=== PATIENT | female | born 1945 | race Caucasian/White ===

== ENCOUNTER 2020-09-14 04:56 | Observation (INO) ==
--- NOTE | 2020-09-08 11:18 | Anesthesiology Consultation ---
Date of Service September 08, 2020 Assessment & Plan (1) Encounter for pre-operative examination: Case originally scheduled for 06/28/20. R/S due to pandemic-related OR shutdown. Patient reports brother and sister both have confirmed h/o malignant hyperthermia. Patient has not had any issues with GA in the past, but unclear if pt has always been treated as a potential MH case and just never received succ. as a precaution. Planning for SAB. Possible difficult intubation based on PE (see other pre-anesthesia evaluation under different V# for physical exam) PCP Clearance 06/14/20 = "Based solely on physical exam today, patient is an acceptable risk for planned procedure." Cardio Clearance 06/09/2020 = "Patient has low risk for right hip replacement." COVID Status: As of 08/19/20 nurse assessment, patient denies travel to endemic area, known exposure/sick contacts, or symptoms of COVID19. Preoperative COVID19 testing completed on 09/07, results pending. Chart Review Chart Review: Acceptable Risk for Surgery and Patient seen in Pre Admission Testing (06/10/20, case then R/S) History Surgery Operation Date: 09/14/20 10:55 Proposed Procedures p Right Total Hip Arthroplasty Posterior - Silas Aguilar DO Height/Weight Height: 5 ft 2.5 in Weight: 102.512 kg Allergies Allergy/AdvReac Type Severity Reaction Status Date / Time adhesive tape Allergy Intermediate Rash Verified 08/19/20 15:02 bacitracin Allergy Intermediate Rash Verified 08/19/20 15:02 [From Neosporin Plus] latex Allergy Intermediate Rash Verified 08/19/20 15:02 lidocaine Allergy Intermediate Rash Verified 08/19/20 15:02 [From Neosporin Plus] neomycin Allergy Intermediate Rash Verified 08/19/20 15:02 [From Neosporin Plus] polymyxin B Allergy Intermediate Rash Verified 08/19/20 15:02 [From Neosporin Plus] pramoxine Allergy Intermediate Rash Verified 08/19/20 15:02 [From Neosporin Plus] aspirin AdvReac Mild Gastrointestinal Verified 08/19/20 15:02 Upset Medications Home Medications Medication Instructions Recorded Confirmed Last Taken atorvastatin 40 mg PO PM 05/31/20 08/19/20 Unknown budesonide-formoterol [Symbicort] 2 puff INHALATION BID 05/31/20 08/19/20 Unknown calcium carbonate-vitamin D3 1 tab PO BID 05/31/20 08/19/20 Unknown [Calcium 500 With D] gabapentin 300 mg PO TID 05/31/20 08/19/20 Unknown lorazepam 0.25 mg PO BID PRN 05/31/20 08/19/20 Unknown methylcellulose (with sugar) 1 tbsp PO PM 05/31/20 08/19/20 Unknown [Citrucel (sucrose)] metoprolol tartrate 50 mg PO PM 05/31/20 08/19/20 Unknown montelukast 10 mg PO PM 05/31/20 08/19/20 Unknown pantoprazole 40 mg PO HS 05/31/20 08/19/20 Unknown potassium chloride 20 meq PO QDL 05/31/20 08/19/20 Unknown spironolactone 50 mg PO QAM 05/31/20 08/19/20 Unknown sulindac 150 mg PO BID 05/31/20 08/19/20 Unknown albuterol 90 mcg INHALATION DAILY PRN 08/19/20 08/19/20 Unknown Past Medical History Medical History Anxiety HX Breast cancer 2014 > S/P BILAT MASTECTOMY Chronic obstructive pulmonary disease WELL CONTROLLED PER PT Diverticular disease Fibromyalgia GERD (gastroesophageal reflux disease) Hyperlipidemia Hypertension Morbid obesity Osteoarthritis Tachycardia WELL CONTROLLED ON METOPROLOL Urinary incontinence SOMETIMES AT HS Past Surgical History Surgical History H/O bilateral mastectomy 2014 History of appendectomy History of bilateral tubal ligation History of cholecystectomy History of colonoscopy History of esophagogastroduodenoscopy (EGD) History of hysterectomy History of right oophorectomy History of tonsillectomy History of tooth extraction Social History Smoking Status: Former smoker Do You Dip or Chew Tobacco: No Smoking End Date: 20 yrs ago Hx Alcohol Use: Yes Alcohol type: beer and wine alcohol intake frequency: a few times a month Hx Substance Use: No substance use type: does not use Testing Laboratory Results 09/07/20 WBC: 9.14 H/H: 13/38.7 PLATELETS: 304 SODIUM: 139 POTASSIUM: 4.0 CHLORIDE: 107 CO2: 28 BUN: 22 CREATININE: 1.04 GLUCOSE: 99 PT: 9.7 PTT: 24.0 INR: 1.0 A1C: 5.7% UA: WNL Chest X-Ray Date: 06/10/20 Findings: + NAD Other Testing Electrocardiogram Date: 12/10/19 Findings: + NSR @ (70bpm) Echocardiogram Date: 01/08/20 EF: 55-59% No change compared to previous echo from 07/08/2018. Left ventricle normal size. Grade 1 diastolic dysfunction of left ventricle. Normal LV wall motion. Mild concentric LVH. Left atrial pressure is normal. Right ventricle has normal size, wall thickness and systolic function. Mild (1+) mitral regurgitation. Pulmonary pressure is normal.
--- NOTE | 2020-09-11 22:25 | History & Physical Report ---
Date of Service September 14, 2020 Assessment & Plan (1) Degenerative joint disease of right hip: I have indicated the patient for right total hip replacement. The risks, benefits and complications of surgery were explained to the patient which include but not limited to infection, acute blood loss, DVT/PE, injury to nerves, vessels, bone, soft tissue, arthrofibrosis, chronic pain, failure of the prosthesis, hip dislocation, leg length discrepancy, need for additional surgery, cardiac and pulmonary events and . The patient wished to proceed with surgery and informed consent was obtained at this time. We will plan for 81mg ASA BID post-operatively for DVT prophylaxis. Upon discharge the patient will be discharged home with home health services. Appropriate clearances by PCP, cardiology were obtained. History of Present Illness Chief Complaint: Right hip pain/DJD/AVN Primary Care Provider: Aleks Munguia MD The patient is a 74 year old female who presents with complaints of severe right hip pain and DJD/AVN. The patient has failed outpatient conservative treatments to this point which included NSAIDs, activity modification, PT and a home exercise/walking program. The patient's pain and limited function have progressed to the point where they severely hinder their activities of daily living and they no longer tolerate exercise programs. They are requesting to proceed with total hip replacement surgery. Allergies Allergy/AdvReac Type Severity Reaction Status Date / Time adhesive tape Allergy Intermediate Rash Verified 09/14/20 05:34 bacitracin Allergy Intermediate Rash Verified 09/14/20 05:34 [From Neosporin Plus] latex Allergy Intermediate Rash Verified 09/14/20 05:34 lidocaine Allergy Intermediate Rash Verified 09/14/20 05:34 [From Neosporin Plus] neomycin Allergy Intermediate Rash Verified 09/14/20 05:34 [From Neosporin Plus] polymyxin B Allergy Intermediate Rash Verified 09/14/20 05:34 [From Neosporin Plus] pramoxine Allergy Intermediate Rash Verified 09/14/20 05:34 [From Neosporin Plus] aspirin AdvReac Mild Gastrointestinal Verified 09/14/20 05:34 Upset Home Medications Medication Instructions Recorded Confirmed Type atorvastatin 40 mg PO PM 05/31/20 09/14/20 History budesonide-formoterol [Symbicort] 2 puff INHALATION BID 05/31/20 09/14/20 History calcium carbonate-vitamin D3 1 tab PO BID 05/31/20 09/14/20 History [Calcium 500 With D] gabapentin 300 mg PO TID 05/31/20 09/14/20 History lorazepam 0.25 mg PO BID PRN 05/31/20 09/14/20 History methylcellulose (with sugar) 1 tbsp PO PM 05/31/20 09/14/20 History [Citrucel (sucrose)] metoprolol tartrate 50 mg PO PM 05/31/20 09/14/20 History montelukast 10 mg PO PM 05/31/20 09/14/20 History pantoprazole 40 mg PO HS 05/31/20 09/14/20 History potassium chloride 20 meq PO QDL 05/31/20 09/14/20 History spironolactone 50 mg PO QAM 05/31/20 09/14/20 History sulindac 150 mg PO BID 05/31/20 09/14/20 History albuterol 90 mcg INHALATION DAILY PRN 08/19/20 09/14/20 History Past Med/Surg History Medical History Anxiety HX Breast cancer 2014 > S/P BILAT MASTECTOMY Chronic obstructive pulmonary disease WELL CONTROLLED PER PT Diverticular disease Family history of malignant hyperthermia Patient reports brother and sister both have confirmed h/o malignant hyperthermia. Patient has not had any issues with GA in the past, but unclear if pt has always been treated as a potential MH case and just never received succ. as a precaution. Fibromyalgia GERD (gastroesophageal reflux disease) Hyperlipidemia Hypertension Morbid obesity Osteoarthritis Tachycardia WELL CONTROLLED ON METOPROLOL Urinary incontinence SOMETIMES AT HS Surgical History H/O bilateral mastectomy 2014 History of appendectomy History of bilateral tubal ligation History of cholecystectomy History of colonoscopy History of esophagogastroduodenoscopy (EGD) History of hysterectomy History of right oophorectomy History of tonsillectomy History of tooth extraction Social History Smoking Status: Former smoker Smoking End Date: 20 yrs ago; Second Hand Exposure: No; Do You Dip or Chew Tobacco: No; Tobacco Cessation Education Requested by Patient: No Hx Alcohol Use: Yes Alcohol type: beer and wine Hx Substance Use: No Preferred Language: Slovenian Communication Ability: Effective Land Developer Required: No Beliefs That Will Affect Care: None Current Living Situation: Significant Other Other Information That Helps Us Care for You: No Feels Safe at Home: Yes Safety Concerns: Feels Safe At This Time Assistive Devices: Cane, Glasses and Walker Review of Systems Review of Systems: All systems reviewed & are unremarkable except as noted in HPI & below Constitutional: as per Subjective / HPI Physical Exam Physical Exam: RLE NVSI +EHL/FHL/TA/GS SILT grossly, +2 DP pulse, compartments soft NT, limited painful ROM, antalgic gait. Constitutional: WD/WN, vitals as above Eyes: PERRL, conjunctivae normal, anicteric sclerae ENMT: external ear and nose normal, oropharynx normal Neck: trachea midline, no thyromegaly Respiratory: normal respiratory effort, lungs clear to auscultation Cardiovascular: RRR, no murmur, no edema Gastrointestinal (Abdomen): normal bowel sounds, soft, nontender, no hepatosplenomegaly Musculoskeletal: no cyanosis or clubbing, extremities motor strength 5/5 Skin: no rashes, warm and dry Neurologic: patellar DTR's 2+ bilat, sensation intact Psychiatric: A+Ox3, euthymic affect Lymphatic: no cervical or axillary lymphadenopathy Results & Data Results & Data ([facility]) Diagnostic Findings Multiple views of the hip demonstrates severe DJD with complete loss of the joint space, AVN of the femoral head. +osteophytes, +sclerosis, +subchondral cysts.
[2020-09-14] MEDS ORDERED: METOCLOPRAMIDE HCL 10 MG TABLET PO SCH (06:00)
[2020-09-14] MEDS ORDERED: TRANEXAMIC ACID 1,000 MG **IV Intra-op IV SCH (06:00)
[2020-09-14] MEDS ORDERED: ACETAMINOPHEN 500 MG TAB PO SCH (06:00)
[2020-09-14] MEDS ORDERED: CeleBREX 200 MG CAP PO SCH (06:00)
[2020-09-14] MEDS ORDERED: LR 500ML BOLUS, THEN 15ML/HR IV SCH (06:00)
[2020-09-14] MEDS ORDERED: ROPIVACAINE 0.5% HCL/PF 150 MG, BUPIVACAINE 0.75% MPF 20 ML, EPINEPHrine 30MG/30ML (OR ... INSTIL SCH (06:00)
[2020-09-14] MEDS ORDERED: dexAMETHasone 4 MG TAB PO SCH (06:00)
[2020-09-14] MEDS ORDERED: TRANEXAMIC ACID 1,000 MG **IV Pre-op IV SCH (06:00)
[2020-09-14] MEDS ORDERED: FAMOTIDINE 20 MG TAB PO SCH (06:00)
[2020-09-14] MEDS ORDERED: BUPIVACAINE 0.5 % 5 MG/1 ML PF 10ML VIAL ONE (06:19)
[2020-09-14] MEDS ORDERED: fentaNYL citrate 100 MCG/2 ML VIAL ONE (06:51)
[2020-09-14] MEDS ORDERED: MIDAZOLAM HCL 1 MG/ML 2ML VIAL ONE (06:51)
[2020-09-14] MEDS ORDERED: ceFAZolin 3000MG/72.5 ML BAG IV ONE (07:00)
--- NOTE | 2020-09-14 07:00 | History & Physical Bridge Note ---
Date of Service September 14, 2020 History & Physical Bridge Note I have examined the patient, reviewed the History & Physical and in the interval since the performance of the History & Physical I have noted the following changes of clinical significance: no changes noted
[2020-09-14] MEDS ORDERED: ORTHO JOINT ANESTHETIC ONE (07:03)
[2020-09-14] MEDS ORDERED: ePHEDrine sulfate 50 MG/ML AMP IV PRN (07:27)
[2020-09-14] MEDS ORDERED: ONDANSETRON INJ 2 MG/ML 2 ML VIAL IV PRN ×2 (07:27→10:29)
[2020-09-14] MEDS ORDERED: fentaNYL citrate 100 MCG/2 ML VIAL IV PRN (07:27)
[2020-09-14] MEDS ORDERED: ATROPINE SULFATE 0.1 MG/ML 10ML SYR IV PRN (07:27)
[2020-09-14] MEDS ORDERED: ePHEDrine sulfate 50 MG/ML SYR ONE (07:35)
[2020-09-14] MEDS ORDERED: PROPOFOL IV EMULSION 10 MG/ML 20 ML VIAL IV ONE (07:35)
--- NOTE | 2020-09-14 08:48 | Post Operative Brief Note ---
Immediate Post Op Note v1 Date of Surgery September 14, 2020 Pre & Post Diagnosis Operation Date: 09/14/20 07:15 Pre-Op Diagnosis: Degenerative joint disease of right hip Post-Op Diagnosis: Degenerative joint disease of right hip I identified the patient and participated in the time-out.: Yes Procedure Operation Date: 09/14/20 07:15 Actual Procedures p Right Posterior Total Hip Arthroplasty(Right) - Silas Aguilar DO Surgeon Silas Aguilar DO District Gauger Kayden Davies Estimated Blood Loss 195 Findings Consistent with Post-Op Diagnosis Specimens femoral head Drains Hemovac Drain Anesthesia Type Spinal MAC Complications none Disposition Disposition: Recovery Room Overlapping Procedure I was present for: the critical portions of procedure. I was immediately available: during the entire case. Back up surgeon: was not required during procedure.
--- NOTE | 2020-09-14 08:50 | Operative Report ---
Post Operative Report Pre & Post Diagnosis Operation Date: 09/14/20 07:15 Pre-Op Diagnosis: Degenerative joint disease of right hip Post-Op Diagnosis: Degenerative joint disease of right hip I identified the patient and participated in the time-out.: Yes Procedure Operation Date: 09/14/20 07:15 Actual Procedures p Right Posterior Total Hip Arthroplasty(Right) - Silas Aguilar DO Surgeon Silas Aguilar DO Cmm Inspector Kayden Davies Estimated Blood Loss 195 Findings Consistent with Post-Op Diagnosis Specimens femoral head Anesthesia Type Spinal MAC Complications none Disposition Disposition: Recovery Room Indications The patient is a 74-year-old female who presents with severe progressive right hip DJD who has failed outpatient conservative treatments. I indicated the patient for a total hip replacement and the risks and benefits were explained in detail which included but not limited to infection, bleeding, blood clot, damage to surrounding bone, nerves, vessels, soft tissue, hip dislocation, failure of the prosthesis, leg length discrepancy, need for additional surgery and . The patient agreed to proceed with replacement of the hip and informed consent was obtained. Appropriate clearances were obtained. Description of Procedure COMPONENTS USED: Jennifer Biomet hip system: Acetabulum size G7 50 osteo-Ti, femur size 11 reduced extended offset, femoral head 36+0, liner 50x36, acetabular screw 25 mm x 1. Following induction of adequate spinal anesthesia, the patient was transferred to the OR table and placed in lateral decubitus position with left hip down. The right hip was prepped and draped in the typical sterile fashion. A timeout was performed, patient identified and site abhishek confirmed. Appropriate antibiotics were given. A standard posterolateral/Catherine-Langenbeck incision was made. Subcutaneous tissue was sharply dissected. Electrocautery was utilized for hemostasis. The fascia was incised throughout the length of the wound and retracted with the Charnley retractor. The bursa was taken down and the short external rotators were identified. The piriformis was tagged with #1 Vicryl. The short external rotators and capsule were divided from the posterior aspect of the femur using electrocautery. The posterior capsule was tagged with #1 Vicryl. Both external rotators and posterior capsule were swept posterior and protected, along with protecting the sciatic nerve. The hip was dislocated by flexion and internally rotation in a controlled manner and exposure of the femoral neck was gained with an old-style Hohmann and a blunt cobra retractor. A femoral cutting guide was utilized for making the appropriate level femoral neck cut with reciprocating saw. The femoral head was removed, measured and reserved on the back table. Next, attention was turned to the acetabulum. A posterior and anterior offset retractor was placed to gain adequate exposure. Acetabular labrum as well as posterior capsule elements were removed using electrocautery and forceps. Fovea centralis was cleared of all soft tissue. Sequential reaming was performed starting at 44 mm and carried up to a 49 mm and decision was made to proceed with impaction of a 50 mm G7 Osteo-Ti cup. This was impacted and held using a single 25 mm acetabular screw. The trial acetabular liner was placed at this time. Next, attention was turned to the proximal femur where a Bovie and pickup was used to further clear short external rotators from their insertion on the femur. Box osteotome and canal finder was used to gain access to the femoral canal and the lateral reamer on power was used to further open the proximal lateral canal. Sequentially rasping was carried up to a 11 which gave good fit and fill of the proximal femur. A t rial reduction was carried out with a reduced extended offset femoral neck component a 36+0 mm femoral head. The trial reduction was stable in all degrees of rotation with no [id number] impingement. The hip was dislocated, trial components were removed and access to the acetabulum was re-established. The trial liner was removed and the cup was irrigated to ensure all debris was removed. The final acetabular liner was inserted and properly seated in the cup. Access to the femur was once more gained and the size 11 femoral stem with reduced extended offset was impacted into position. The hip was once more assessed with the 36+0 mm femoral head. Stability was accessed and found to be excellent with equal leg lengths. The hip was dislocated for the last time and the final 36+0 ceramic femoral head was impacted in place and the hip was reduced. Range of motion was checked once again and found to be stable. A Betadine soak was performed. After 3 minutes, the hip was once more irrigated with copious sterile saline solution with bacitracin. The parker-incisional soft tissue was injected utilizing [place] ortho mix which includes a combination of Ropivicaine 0.5% 150mg, Bupivicaine 0.5%/Epinephrine 1:200,000 30ml, Toradol 30mg, Dexamethasone 4mg, Ketamine 10mg, Clonidine 100mcg and NSS 30ml Orthomix solution. The piriformis, external rotators and capsule were repaired to the greater trochanter through bone tunnels using #5 FiberWire. The fascia was closed using #1 Vicryl, subcutaneous tissue was closed using 2-0 Vicryl, and skin was closed with alo. A sterile dry dressing was applied which included tere incisional VAC. The patient tolerated the procedure well and was transported to PACU in stable condition. Due to the complex nature of the procedure, the entire surgery was performed with the operational assistance of Kayden Davies PA-C. The volunteer assistant, under direct supervision, was involved in the actual performance of all aspects of the surgical procedure including patient positioning, hemostasis, tissue retraction, instrument management and wound closure. I attest to the content of the Intraoperative Record and any orders documented therein. Any exceptions are noted below.
--- NOTE | 2020-09-14 09:31 | XRay Report ---
XR hip 1V RT w pelvis CLINICAL HISTORY: Postoperative study COMPARISON: None. DISCUSSION: There are postsurgical changes of a total right hip arthroplasty. The acetabular and femo ral components appear well seated. There is no dislocation. There is gas within the soft tissues cons istent with recent surgery. There are overlying skin alo. IMPRESSION: Postsurgical changes of a total right hip arthroplasty. No evidence of dislocation. ACT 112: Negative or not required by law. Electronically signed by: Lucho Garza M.D. 09/14/2020 9:30 AM
--- NOTE | 2020-09-14 09:42 | Anesthesiology Progress Note ---
Date of Service September 14, 2020 Anesthesia Post Procedure Vital Signs Vital Signs: Temp Pulse Pulse Resp BP Pulse Ox 09/14/20 09:35 36.4 C L 78 19 97/47 L 96 09/14/20 09:25 77 15 104/53 L 96 09/14/20 09:11 36.2 C L 80 16 111/60 98 09/14/20 05:25 37 C 88 20 141/66 H 96 Transfer of Care Handoff Completed per policy Notes Mental Status: alert / awake / arousable and participated in evaluation Nausea / Vomiting: adequately controlled Pain: adequately controlled Airway Patency, RR, SpO2: stable & adequate BP & HR: stable & adequate Hydration State: stable & adequate Neuraxial Anesthesia: was administered and sensory block is resolving Anesthetic Complications: no major complications apparent and Pt Satisfied with anesthetic care
[2020-09-14] MEDS ORDERED: LORazepam 0.5 MG TAB PO PRN (10:29)
[2020-09-14] MEDS ORDERED: oxyCODONE HCL IR 5 MG TAB (IMMEDIATE RELEASE) PO PRN (10:29)
[2020-09-14] MEDS ORDERED: MAGNESIUM HYDROXIDE SUSP 30 ML UDC PO PRN (10:29)
[2020-09-14] MEDS ORDERED: bisacodyL 10 MG SUPP PR PRN (10:29)
[2020-09-14] MEDS ORDERED: HYDROmorphone INJ 0.5 MG/0.5 ML SYR IV PRN (10:29)
[2020-09-14] MEDS ORDERED: SODIUM CHLORIDE 0.9% 1000ML 1,000 ML IV SCH (10:29)
[2020-09-14] MEDS ORDERED: METOCLOPRAMIDE HCL INJ 5 MG/ML 2 ML VIAL IV PRN (10:29)
[2020-09-14] MEDS ORDERED: NALOXONE HCL 0.4 MG/1 ML VIAL/CARP IV PRN (10:29)
[2020-09-14] MEDS ORDERED: diphenhydrAMINE 50 MG/ML VIAL IV PRN (10:29)
[2020-09-14] MEDS ORDERED: ALBUTEROL HFA 8 GM INHALER INH PRN (10:43)
[2020-09-14] MEDS: SPIRONOLACTONE 25 MG TAB PO SCH (12:20)
[2020-09-14] MEDS: KETOROLAC TROMETHAMINE 15 MG/ML VIAL IV SCH ×3 (12:20→23:01)
[2020-09-14] MEDS: DOCUSATE SODIUM 100 MG CAP PO SCH ×2 (12:21→21:25)
[2020-09-14] MEDS: GABAPENTIN 300 MG CAP PO SCH ×3 (12:21→21:25)
[2020-09-14] MEDS: POTASSIUM CHLORIDE CRTAB 20 MEQ TABCR PO SCH (12:22)
[2020-09-14] MEDS: MULTIVITAMIN TAB PO SCH (12:22)
[2020-09-14] MEDS: ACETAMINOPHEN 500 MG TAB PO SCH ×2 (15:49→21:26)
--- NOTE | 2020-09-14 16:29 | Orthopedic Progress Note ---
Date of Service September 14, 2020 Assessment & Plan (1) Degenerative joint disease of right hip: s/p right TEMO -ancef x 24 -DVT ppx: SCDs, TEDs, 81mg ASA BID -WBAT RLE -PT/OT -PO XR demonstrates a well aligned well fixed prosthesis without fracture/dislocation -am labs -DC planning Admission and Anticipated Discharge Date Admission Date: September 14, 2020 Subjective Post Operative Progress Note Patient seen sitting up in bed, comfortable, denies complaints, pain well controlled, no acute issues. Review of Systems Review of Systems: All systems reviewed & are unremarkable except as noted in HPI & below Constitutional: as per Subjective / HPI Physical Exam Physical Exam: RLE NVSI +EHL/FHL/TA/GS SILT grossly, +2 DP pulse, compartments soft NT, dressing cdi. Constitutional: WD/WN, vitals as above Results & Data ([facility]) Vital Signs (Past 12 Hours) Vital Signs Temp Pulse Pulse Pulse Resp BP Pulse Ox 09/14/20 13:26 36.4 C L 85 16 133/68 95 09/14/20 12:10 36.3 C L 83 16 128/73 98 09/14/20 10:59 36.3 C L 81 16 121/74 99 09/14/20 10:31 36.5 C 16 119/71 76 L 09/14/20 10:00 36.5 C 78 16 113/67 95 09/14/20 09:45 78 12 121/63 96 09/14/20 09:35 36.4 C L 78 19 97/47 L 96 09/14/20 09:25 77 15 104/53 L 96 09/14/20 09:11 36.2 C L 80 16 111/60 98 09/14/20 05:25 37 C 88 20 141/66 H 96
[2020-09-14] MEDS: ceFAZolin 2000MG 2,000 MG/15 ML SYR IV SCH ×2 (17:03→23:01)
[2020-09-14] MEDS ORDERED: MONTELUKAST SODIUM 10 MG TABLET PO SCH (21:00)
[2020-09-14] MEDS ORDERED: METOPROLOL TARTRATE 50 MG TAB PO SCH (21:00)
[2020-09-14] MEDS ORDERED: SENNA 8.6 MG TAB PO SCH (21:00)
[2020-09-14] MEDS ORDERED: ATORVASTATIN 40 MG TAB PO SCH (21:00)
[2020-09-14] MEDS ORDERED: PANTOprazole 40 MG TAB PO SCH (21:00)
[2020-09-15] MEDS: ACETAMINOPHEN 500 MG TAB PO SCH ×2 (05:41→13:28)
[2020-09-15] MEDS: KETOROLAC TROMETHAMINE 15 MG/ML VIAL IV SCH (05:41)
[2020-09-15 06:00] LABS: Basophils # (auto) 0.01 K/uL (0-0.2); Basophils % (auto) 0.1 %; Hematocrit (blood only) 30.8 % (37-47); Hemoglobin 10.6 g/dL (12.0-16.0); Immature Granulocytes # (auto) 0.03 K/uL (0.00-0.02); Immature Granulocytes % (auto) 0.2 %; Lymphocytes # (auto) 1.42 K/uL (1.2-3.4); Lymphocytes % (auto) 9.3 %; Mean Corpuscular Hemoglobin 32.1 pg (25-34); Mean Corpuscular Hgb Conc 34.4 g/dL (32-36); Mean Corpuscular Volume 93.3 fL (80-100); Mean Platelet Volume 9.9 fL (7.4-10.4); Monocytes # (auto) 0.93 K/uL (0.11-0.59); Monocytes % (auto) 6.1 %; Neutrophils # (auto) 12.85 K/uL (1.4-6.5); Neutrophils % (auto) 84.3 %; Platelet Count 271 K/uL (130-400); RDW Coefficient of Variation 13.4 % (11.5-14.5); RDW Standard Deviation 45.7 fL (36.4-46.3); White Blood Count 15.24 K/uL (4.8-10.8)
[2020-09-15 06:30] LABS: BUN Creatinine Ratio 25.9 (10-20); Calcium 8.9 mg/dl (8.5-10.1); Creatinine Clr Calc Pharmacy 52.9 ml/min; Est GFR (African American) 57.5; Est GFR (Non-African American) 49.6; Potassium 4.2 mmol/L (3.5-5.1)
[2020-09-15] MEDS: SPIRONOLACTONE 25 MG TAB PO SCH (08:14)
[2020-09-15] MEDS: GABAPENTIN 300 MG CAP PO SCH ×2 (08:15→13:28)
[2020-09-15] MEDS: MULTIVITAMIN TAB PO SCH (08:15)
[2020-09-15] MEDS: DOCUSATE SODIUM 100 MG CAP PO SCH (08:15)
[2020-09-15] MEDS ORDERED: ASPIRIN 81 MG ECTAB PO SCH (09:00)
[2020-09-15] MEDS ORDERED: FLUTICASONE/VILANTEROL 100/25MCG 14 PUFFS/INHALER INH SCH (09:00)
[2020-09-15] MEDS: POTASSIUM CHLORIDE CRTAB 20 MEQ TABCR PO SCH (10:36)
--- NOTE | 2020-09-15 10:55 | Orthopedic Progress Note ---
Date of Service September 15, 2020 Assessment & Plan (1) Degenerative joint disease of right hip: s/p right TEMO POD#1 -ancef x 24 -DVT ppx: SCDs, TEDs, 81mg ASA BID -WBAT RLE -PT/OT -PO XR demonstrates a well aligned well fixed prosthesis without fracture/dislocation -am labs - as above, hgb 10.6 -DC planning - DC home with Admission and Anticipated Discharge Date Admission Date: September 14, 2020 Subjective Post Operative Progress Note Patient seen sitting in chair at bedside, comfortable, denies complaints, pain well controlled, no acute issues. Denies F/C/N/V/SOB/CP. Review of Systems Review of Systems: All systems reviewed & are unremarkable except as noted in HPI & below Constitutional: as per Subjective / HPI Physical Exam Physical Exam: RLE NVSI +EHL/FHL/TA/GS SILT grossly, +2 DP pulse, compartments soft NT, dressing cdi. Results & Data ([facility]) Vital Signs (Past 12 Hours) Vital Signs Temp Pulse Resp BP BP Pulse Ox 09/15/20 07:01 36.8 C 91 H 18 135/64 93 09/15/20 02:28 36.6 C 86 18 120/67 92 Laboratory Results 09/15/20 09/15/20 09/15/20 Range/Units 05:35 05:35 05:35 WBC 15.24 H (4.8-10.8) K/uL RBC 3.30 L (4.2-5.4) M/uL Hgb 10.6 L (12.0-16.0) g/dL Hct 30.8 L (37-47) % MCV 93.3 (80-100) fL MCH 32.1 (25-34) pg MCHC 34.4 (32-36) g/dL RDW Std Deviation 45.7 (36.4-46.3) fL RDW Coeff of Trisha 13.4 (11.5-14.5) % Plt Count 271 (130-400) K/uL MPV 9.9 (7.4-10.4) fL Immature Gran % (Auto) 0.2 % Neut % (Auto) 84.3 % Lymph % (Auto) 9.3 % [place] % (Auto) 6.1 % Eos % (Auto) 0.0 % Baso % (Auto) 0.1 % Neut # (Auto) 12.85 H (1.4-6.5) K/uL Lymph # (Auto) 1.42 (1.2-3.4) K/uL [place] # (Auto) 0.93 H (0.11-0.59) K/uL Eos # (Auto) 0.00 (0-0.5) K/uL Baso # (Auto) 0.01 (0-0.2) K/uL Immature Gran # (Auto) 0.03 H (0.00-0.02) K/uL Sodium 138 (136-145) mmol/L Potassium 4.2 (3.5-5.1) mmol/L Chloride 109 H (98-107) mmol/L Carbon Dioxide 23 (21-32) mmol/L Anion Gap 6.0 (3-11) BUN 29 H (7-18) mg/dl Creatinine 1.11 (0.6-1.2) mg/dl Est Cr Clr Drug Dosing 52.9 ml/min Est GFR ( Amer) 57.5 Est GFR (Non-Af Amer) 49.6 BUN/Creatinine Ratio 25.9 H (10-20) Glucose 128 H (70-99) mg/dl Calcium 8.9 (8.5-10.1) mg/dl Hepatitis C Ab Screen Neg (Neg)
--- NOTE | 2020-09-15 20:27 | Discharge Summary ---
Date of Service September 15, 2020 Admission HPI Per Admitting Provider The patient is a 74 year old female who presents with complaints of severe right hip pain and DJD/AVN. The patient has failed outpatient conservative treatments to this point which included NSAIDs, activity modification, PT and a home exercise/walking program. The patient's pain and limited function have progressed to the point where they severely hinder their activities of daily living and they no longer tolerate exercise programs. They are requesting to proceed with total hip replacement surgery. Principal Diagnosis Right total hip replacement -Right hip DJD Discharge Exam RLE NVSI +EHL/FHL/TA/GS SILT grossly, +2 DP pulse, compartments soft NT, dressing cdi. Constitutional WD/WN, vitals as above Discharge Data Allergies Allergy/AdvReac Type Severity Reaction Status Date / Time adhesive tape Allergy Intermediate Rash Verified 09/14/20 05:34 bacitracin Allergy Intermediate Rash Verified 09/14/20 05:34 [From Neosporin Plus] latex Allergy Intermediate Rash Verified 09/14/20 05:34 lidocaine Allergy Intermediate Rash Verified 09/14/20 05:34 [From Neosporin Plus] neomycin Allergy Intermediate Rash Verified 09/14/20 05:34 [From Neosporin Plus] polymyxin B Allergy Intermediate Rash Verified 09/14/20 05:34 [From Neosporin Plus] pramoxine Allergy Intermediate Rash Verified 09/14/20 05:34 [From Neosporin Plus] aspirin AdvReac Mild Gastrointestinal Verified 09/14/20 05:34 Upset Procedures Performed Operation Date: 09/14/20 07:15 Actual Procedures p Right Posterior Total Hip Arthroplasty(Right) - Silas Aguilar DO [facility] Course (1) Degenerative joint disease of right hip: The patient is a 74 -year-old female who presents with long standing history of severe right hip DJD and failed outpatient conservative treatments. The patient's symptoms have progressed to the point where it has been difficult to perform even normal activities of daily living. I indicated the patient for a right total hip arthroplasty, the risks, benefits and complications of the procedure include but not limited to infection, bleeding, damage to bone, nerves, vessels, surrounding soft tissue, may develop blood clots, loss of function, leg length discrepancy, dislocation, failure of the components, loosening of the components, the need for additional surgery and . The patient wished to proceed with surgery at this time and informed consent was obtained. Hospital Course: On 09/14/20 the patient was taken to the operating room, adequate anesthesia administered and underwent a right total hip arthroplasty. The patient tolerated the procedure well and was taken to the PACU in stable condition. Post-operatively the patient was started on a DVT ppx medication and given appropriate IV antibiotics. Consults were placed to physical therapy, occupational therapy and case management. On POD#1, the patient did well overnight and their pain was well controlled. Labs were drawn and the Hgb was 10.6. The patient progressed well with PT. Dressings were changed at this time and the incision was clean, dry and intact. The patients hospital stay was relatively uneventful and they were deemed stable by the orthopedic team and consultants to be discharged home with HH on 09/15/20. Discharge Instructions: Upon discharge the patient may weight bear as toleartes through their operative extremity. They were instructed to keep the incision clean and dry at all times . The patient may shower but should not submerge the incision, avoid bathing, pools and hot tubs. The patient was given a script for pain medication and should take as instructed. The patient was given a script for DVT ppx 81mg ASA BID and should take as directed. The patient was instructed to not drive or travel for long distances until cleared to do so. If the patient develops any symptoms of fevers, chills, nausea, vomiting, increased redness, swelling, pain or drainage from the surgical site, they should notify the office and/or proceed to the nearest emergency room. The patient should follow up in 10-14 days after surgery for their routine post-operative follow-up appointment and should call the office, to confirm the date and time. s/p right TEMO POD#1 -ancef x 24 -DVT ppx: SCDs, TEDs, 81mg ASA BID -WBAT RLE -PT/OT -PO XR demonstrates a well aligned well fixed prosthesis without fracture/dislocation -am labs - as above, hgb 10.6 -DC planning - DC home with Total Time Total Time Spent Total Time Spent (In Minutes): 30 Discharge Plan Discharge Items Patient Disposition: Home - Home Health Services Reason For Visit: Avascular Necrosis Hip Right Discharge Diagnosis: Right total hip replacement Condition on Discharge: Good Activity: Per Instructions section Lifting: Wait until after follow-up appointment Bathing: Keep incision dry Bathing Comment: No bathing, pools or hot tubs. Sexual Activity: Wait until after follow-up appointment Exercise/Sports: Wait until after follow-up appointment Driving/Machine Use: No driving. Weightbearing: Full weightbearing Non-emergency contact: Primary Care Provider and Surgeon Call non-emergency contact if: you have any medication questions, your symptoms worsen, your pain is not controlled, your pain is worsening, your pain is unusual for you, your pain is concerning for you, you have a fever, your temperature is above 101, your wound has increased redness, your wound has increased drainage and your wound pain has increased Follow-up/Referrals: Aleks Munguia MD [Primary Care Provider] - Diet: Regular Addtl Attending Provider Instructions: ACTIVITY RECOMMENDATIONS: SELF CARE INSTRUCTIONS AFTER TOTAL HIP REPLACEMENT Until the incision and soft tissues around your hip have healed, there is a possibility that the hip prosthesis could dislocate. A. Observe the following precautions to prevent dislocation: 1. Don't bend your hip greater than 90 degrees. 2. Avoid crossing your legs or ankles while standing or lying. 3. Sit with your feet placed 6 inches apart. 4. When sitting, keep your knees below your hips. Sit on a firm surface, avoid deep, soft chairs and couches. Use an elevated toilet seat in the bathroom. 5. Don't bend over at the waist. Use a long handled shoehorn and a sock aid to help you put on your shoes and socks. A asphalt paving supervisor can help you picker operator objects that are too high or too low to reach. 6. Keep car riding to a minimum for at least one month after surgery. B. Your balance may be shaky for a while. Use crutches or a walker until directed by your doctor. C. Use hand rails when walking on stairs. D. Wear low heeled shoes with non-slip soles. E. Be sure that your floors are free of things that could trip you - throw rugs, electrical cords, small objects. Avoid wet and waxed floors, especially with crutches and canes. F. Try to walk several times a day with rest periods between. G. Continue with all the exercises taught to you in the hospital. Again, make walking a part of your daily routine. SPECIAL CARE INSTRUCTIONS: VERY IMPORTANT TO READ AND REVIEW A. You may still be at risk for phlebitis and blood clots. 1. Wear surgical stockings (MARIANGEL hose) for 2 weeks after surgery to improve circulation and reduce swelling. 2. Take Aspirin 81mg twice daily for 4 weeks or as directed by your doctor. This is your blood thinner. 3. High risk patients may be prescribed a stronger blood thinner if necessary. 4. If you are on Coumadin normally, your family doctor/restaurant operations manager should monitor your blood work. Expect a phone call the day of or the day after bloodwork is drawn to adjust your dosage. B. You must take antibiotics before having dental work, bladder, bowel and other surgery. Your doctor will provide you with a permanent card to carry describing precautions. C. Call [facility] if you have a fever, redness or swelling around the incision, cloudy drainage from incision, or sudden increase in pain in your hip, not relieved by your regular pain medication. D. Please call the office at if you have any concerns or questions about your operation or recovery. * YOU MAY SHOWER, NO TUB BATHS UNTIL CLEARED BY YOUR DOCTOR. * WEAR MARIANGEL HOSE 20 HOURS PER DAY FOR 2 WEEKS. * YOU SHOULD USE A WALKER OR CRUTCHES FOR 2-4 WEEKS. THIS WILL HELP PREVENT STRAIN ON YOUR HIP MUSCLE AND ALLOW IT TO HEAL PROPERLY. YOU MAY WEAN TO A CANE TOLERATED. * MOST PATIENTS WILL HAVE HOME NURSING FOR THERAPY. IF YOU DECIDE TO DO OUTPATIENT PHYSICAL THERAPY, PLEASE SCHEDULE THIS 3 TIMES PER WEEK. *DARIO incisional vac is a special dressing covering your incision. This dressing provides a sterile dry environment while you are healing. The dressing is to be left in place for 7 days post-operatively. Your home nurse or surgeon will remove. If you develop any redness or blisters or have any questions notify your surgeon immediately. FOLLOW UP VISIT: If appointment is not already scheduled: Please call [facility] to make a follow-up appointment for 2 weeks after your surgery at . Pending Studies at Discharge: No Stand-Alone Forms: [facility], Opioid Pain Management, Smoking Cessation Medications and DC Order Prescriptions: New acetaminophen 500 mg Tablet 1,000 mg PO Q8 PRN (Reason: fever or pain) Qty: 90 RF: 0 aspirin 81 mg Tablet,Delayed Release (Dr/Ec) 81 mg PO BID Qty: 56 RF: 0 oxycodone 5 mg Tablet 5 mg PO Q6H MDD 4 PRN (Reason: pain) Qty: 30 RF: 0 sennosides [Senokot] 8.6 mg Tablet 17.2 mg PO HS PRN (Reason: constipation) Qty: 28 RF: 0 Continued albuterol 90 mcg/actuation Aerosol 90 mcg INHALATION DAILY PRN (Reason: Shortness Of Breath) RF: 0 atorvastatin 40 mg Tablet 40 mg PO PM RF: 0 metoprolol tartrate 100 mg Tablet 50 mg PO PM RF: 0 sulindac 150 mg Tablet 150 mg PO BID RF: 0 lorazepam 0.5 mg Tablet 0.25 mg PO BID PRN (Reason: Anxiety) RF: 0 pantoprazole 40 mg Tablet,Delayed Release (Dr/Ec) 40 mg PO HS RF: 0 gabapentin 300 mg Capsule 300 mg PO TID RF: 0 montelukast 10 mg Tablet 10 mg PO PM RF: 0 spironolactone 50 mg Tablet 50 mg PO QAM RF: 0 Citrucel (sucrose) Powder 1 tbsp PO PM RF: 0 calcium carbonate-vitamin D3 [Calcium 500 With D] 500 mg(1,250mg) -400 unit Tablet 1 tab PO BID RF: 0 budesonide-formoterol [Symbicort] 160-4.5 mcg/actuation Hfa Aerosol Inhaler 2 puff INHALATION BID RF: 0 potassium chloride 20 mEq Tablet Extended Release 20 meq PO QDL RF: 0 Discharge Orders: Discharge Order (Routine); Ordered 09/15/20 Ordered By: Kayden Gould/Other Patient Handouts: DVT Post Op Prevention, 5 Steps for Eating Healthier, A1C Admission Data Admit Date/Time: 09/14/20 09:16 Attending Provider: Silas Aguilar Admit Provider: Silas Aguilar Primary Care Provider: Aleks Munguia Other Interventions: Discharge Summary Assessment (RN) Last Done: 09/15/20 11:11
== END 2020-09-15 14:05 | disposition home health service (06) ==
LOC: ASU 04:56 → 3E 04:56